=== PATIENT | male | born 1985 | race Caucasian/White ===

== ENCOUNTER 2017-09-10 06:15 | Day surgery (SDC) | payer OTHER ==
[2017-09-03 09:15] LABS: ABSOLUTE EOSINOPHILS # (AUTO) 0.2 10^3/uL (0.0-0.6); ABSOLUTE LYMPHOCYTES (AUTO) 1.6 10^3/uL (0.5-4.7); ABSOLUTE MONOCYTES (AUTO) 0.5 10^3/uL (0.1-1.4); ABSOLUTE NEUT (AUTO) 2.9 10^3/uL (1.7-8.2); BASOPHILS % (AUTO) 0.9 % (0-2); EOSINOPHILS % (AUTO) 2.9 % (0-6); HEMOGLOBIN 15.5 g/dL (13.5-17.0); LYMPHOCYTES % (AUTO) 30.5 % (13-45); MEAN CORPUSCULAR HEMOGLOBIN 28.9 pg (27.0-33.4); MEAN CORPUSCULAR HGB CONC 34.5 g/dL (32.0-36.0); MEAN CORPUSCULAR VOLUME 84 fl (80-97); PLATELET COUNT 201 10^3/uL (150-450); RED BLOOD COUNT 5.36 10^6/uL (4.35-5.55); RED CELL DISTRIBUTION WIDTH 12.7 % (11.5-14.0); SEGMENTED NEUTROPHILS % (AUTO) 55.7 % (42-78); TOTAL CELLS COUNTED % (AUTO) 100 %; WHITE BLOOD COUNT 5.2 10^3/uL (4.0-10.5)
[2017-09-03 09:17] LABS: APPEARANCE,URINE CLEAR; BILIRUBIN,URINE NEGATIVE (NEGATIVE); COLOR,URINE YELLOW; GLUCOSE, URINE NEGATIVE (NEGATIVE); KETONES,URINE NEGATIVE (NEGATIVE); LEUKOCYTE ESTERASE,URINE NEGATIVE (NEGATIVE); NITRITE,URINE NEGATIVE (NEGATIVE); PROTEIN,URINE NEGATIVE (NEGATIVE); UROBILINOGEN,URINE NEGATIVE mg/dL (<2.0)
[2017-09-03 09:37] LABS: ANION GAP 9 (5-19); BLOOD UREA NITROGEN 13 mg/dL (7-20); CALCIUM 9.7 mg/dL (8.4-10.2); CARBON DIOXIDE 30 mmol/L (22-30); CHLORIDE 104 mmol/L (98-107); GLUCOSE 92 mg/dL (75-110); POTASSIUM 4.4 mmol/L (3.6-5.0); SODIUM 143.3 mmol/L (137-145)
[~2017-09-10 06:15] MED LIST: BUPIVACAINE HCL 0.5 % INJ/PF 30 ML SDV ONE; CEFAZOLIN 2 GM/D5W RTU 2 GM/50 ML RTUPB IV PRN; LACTATED RINGERS 1000 ML IV PRN
[2017-09-10] MEDS ORDERED: FENTANYL CITRATE INJ/PF 100 MCG/2 ML AMPUL ONE (06:25)
[2017-09-10] MEDS ORDERED: LIDOCAINE 2% INJ-PF (20 MG/ML) 10 ML AMPUL ONE (06:25)
[2017-09-10] MEDS ORDERED: DEXAMETHASONE SOD PHOSPHATE INJ 4 MG/1 ML VIAL ONE (06:26)
[2017-09-10] MEDS ORDERED: ACETAMINOPHEN 100 ML IV ONE (06:26)
[2017-09-10] MEDS ORDERED: PROPOFOL INJ 200 MG/20 ML VIAL IV ONE (06:26)
[2017-09-10] MEDS ORDERED: MIDAZOLAM 2 MG/2 ML INJ ONE (06:26)
[2017-09-10] MEDS ORDERED: ONDANSETRON HCL INJ/PF 4 MG/2 ML SDV ONE (06:26)
--- NOTE | 2017-09-10 09:37 | Operative Report ---
Operative Report DATE OF SURGERY: 09/10/17 PREOPERATIVE DIAGNOSIS: Loose Body Left Elbow. Lateral Epicondylitis Left Elbow POSTOPERATIVE DIAGNOSIS: Same OPERATION: Left Elbow Arthroscopy w/ Removal of Loose Bodies, Lateral Epicondylar Release SURGEON: BLAYNE MEJIA 1ST PRODUCTION REPAIRER: IKE HANNA - Required for arthroscopic retractor manipulation along with extremity manipulation during loose body removal ANESTHESIA: GA COMPLICATIONS: None ESTIMATED BLOOD LOSS: Minimal PROCEDURE: Indication for above procedure: 32-year-old male with complaints of left elbow pain. Patient sustained injury years ago resulting in a nondisplaced radial head fracture which was treated nonoperatively. Patient recovered after his injury but continued to have discomfort in his elbow. Ultimately CT scan demonstrated evidence of loose bodies. Further on examination patient had findings of lateral epicondylitis. At that point we discussed treatment options including operative versus nonoperative intervention. Risks and benefits were explained to the patient who verbalized understanding consented for the procedure. Procedure In Detail: Patient was seen and evaluated in the preoperative holding area. The LEFT upper extremity was initialized and marked. Patient received 2g of Ancef IV for bacterial prophylaxis. Patient was taken back to the operative room where transferred to the operative table and placed under general anesthesia. Once they were adequately anesthetized a nonsterile tourniquet was placed on the upper extremity patient was placed in a lateral position, bilateral lower extremities carefully padded and nonoperative right upper extremity. A surgical team debriefing was performed ensuring all instrumentation was available, the surgical procedure was discussed with possible concerns reviewed. The upper extremity was prepped with ChloraPrep and draped in a sterile fashion. A timeout was done identifying correct patient, procedure and extremity everyone in attendance agree with this and verbalized no concerns. The extremity was exsanguinated the tourniquet was inflated to 250 mmHg. Patient's landmarks were identified including the ulnar nerve. Left elbow was insufflated with 50 cc of normal saline. A proximal anterior medial portal was established 2 cm proximal/anterior to the medial epicondyle. Arthroscope introduced into the elbow joint. Via triangulation a proximal anterior lateral portal was established 2 cm proximal/anterior to the lateral epicondyle. A cannula was introduced into the joint. Exploration demonstrated a loose body along the lateral aspect of the epicondyle. There is also evidence of bony overgrowth of the lateral epicondyle at the insertion of the ECRB. 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 This tissue was completely excised with the shaver until the muscle of the ECRL was identified with special attention to avoid dissection posterior to the [place] of the radial head at the region of the lateral ulnar collateral ligament. There was evidence of a radiocapitellar plica as well which was also excised. Evaluation of the radial head demonstrated previous fracture site with fibrocartilage formation and fraying. No full-thickness chondral damage appreciated. Chondroplasty was performed of the radial head evaluation of the medial aspect of the joint demonstrated no evidence of residual loose bodies. Patient had full elbow range of motion. I then proceeded with arthroscopy of the posterior compartment. A mid lateral portal was established 3 cm proximal to the olecranon tip and a posterior lateral portal established 4 cm proximal. Under direct visualization the tip of the olecranon was identified and the olecranon fossa. A small loose body was identified along the medial origin and successfully removed. Within the posterior lateral compartment the radial head was identified there was no evidence of residual loose bodies in this region. Any residual nonviable frame was debrided. Patient had full elbow range of motion including pronation supination without evidence of clicking or popping. 20 cc of 0.5% Marcaine with epinephrine was injected for postoperative pain control. The wounds were closed with interrupted 3-0 nylon suture. Wound was dressed with Xeroform 4 x 4 's and a soft bandage. Sponge counts, instrument counts, needle counts counts were correct. Patient was then awoken from anesthesia. Transferred from the operating room table to the operating room stretcher. There was no intraoperative complications patient tolerated procedure well stable to PACU. Postoperative plan: Patient will follow-up the office in 2 weeks for wound check. Will begin occupational therapy in 72 hours to begin range of motion exercises.
[2017-09-10] MEDS ORDERED: ONDANSETRON HCL INJ/PF 4 MG/2 ML SDV IV PRN (09:39)
[2017-09-10] MEDS ORDERED: RINGERS SOLUTION,LACTATED 1,000 ML IV PRN (09:39)
[2017-09-10] MEDS ORDERED: MORPHINE SULFATE 10 MG/ML INJ IV PRN ×2 (09:39→09:49)
[2017-09-10] MEDS ORDERED: OXYCODONE-ACETAMINOPHEN 5-325 MG TABLET PO PRN ×3 (09:39→09:49)
[2017-09-10] MEDS ORDERED: DIPHENHYDRAMINE HCL 50 MG/ML VIAL IV PRN (09:49)
[2017-09-10] MEDS ORDERED: PROMETHAZINE HCL INJ 25 MG/1 ML VIAL IV PRN ×2 (09:49)
[2017-09-10] MEDS ORDERED: MEPERIDINE HCL/PF INJ 25 MG/1 ML DISP.SYRIN IV PRN (09:49)
[2017-09-10] MEDS ORDERED: FENTANYL CITRATE INJ/PF 100 MCG/2 ML AMPUL IV PRN ×3 (09:49)
[2017-09-10 11:24] VITALS: BP 108/70
[2017-09-10] MEDS ORDERED: GLYCOPYRROLATE INJ 0.4 MG/2 ML VIAL ONE (14:33)
[2017-09-10] MEDS ORDERED: VECURONIUM BROMIDE INJ 10 MG VIAL IV ONE (14:33)
[2017-09-10] MEDS ORDERED: SUCCINYLCHOLINE CHLORIDE INJ 200 MG/10 ML VIAL ONE (14:33)
[2017-09-10] MEDS ORDERED: NEOSTIGMINE METHYLSULFATE 10 MG/10 ML VIAL ONE (14:33)
--- NOTE | 2017-09-17 09:12 | Discharge Summary ---
Discharge Summary (SDC) - Discharge Final Diagnosis: Left Elbow Loose Body Date of Surgery: 09/10/17 Discharge Date: 09/10/17 Condition: Good Forms: ASU Anesthesia D/C Instruction, Discharge POC-Surgical Service Treatment or Instructions: Schedule Follow Up w/ Dr. Tam Mejia @ [facility] to be seen in 10-14 days or as scheduled [place]: [place]: [place]: May remove dressing on postop day #3, keep incision covered and dry. Ice and elevate May begin finger range of motion attempting to make full fist. Stool softener of choice when on pain medication. Prescriptions: Oxycodone HCl/Acetaminophen [Endocet 5-325 Tablet] 1 each PO Q6 #40 tablet Referrals: TAM MEJIA DO [ACTIVE STAFF] - 09/26/17 8:00 am Respiratory Treatments at Home: Deep Breathing/Coughing Discharge Activity: Activity As Tolerated, Balance Activity w/Rest Home Care Assistance: None Needed Report the Following to Your Physician Immediately: Shortness of Breath, Nausea , Vomiting, Increase in Pain, Fever over 101 Degrees, Unusual Bleeding, Redness , Swelling, Warmth, Numbness, Tingling Sensation, IV Site Infection Signs
== END 2017-09-10 11:15 | disposition home or self-care (01) ==
LOC: OROUT 06:15
PROVIDERS: ATTEND Orthopaedic Surgery
DX: M77.12 Lateral epicondylitis, left elbow (principal); M24.022 Loose body in left elbow
CPT/HCPCS: 36415; 85025; 80048; 81001; 29834; 24358; J2250; J3490 ×3; J1100; J3010; J0330; J2405; J2704; J0690; J0131; 1740